=== PATIENT | female | born 1970 | race African-American/Black ===

== ENCOUNTER 2016-07-26 17:47 | Emergency (ER) | payer BC ==
[~2016-07-26] VITALS: Ht 165.1 cm; Wt 72.6 kg
[2016-07-26 17:59] VITALS: BP 130/81
[2016-07-26] MEDS ORDERED: HYDROCODONE/APAP 5/325MG TABLET. PO ONE (18:30)
--- NOTE | 2016-07-26 19:20 | PHYS DOC ---
Past Medical History Past Medical History: Sciatica Past Surgical History: , Hysterectomy, Tonsillectomy Alcohol Use: None Drug Use: None Adult General Chief Complaint Chief Complaint: UPPER EXTREMITY PAIN HPI HPI Patient is a 46 year old female who presents with atraumatic right shoulder pain for 2 weeks. reports initially she thought she slept on it wrong but symptoms have not improved. No interventions prior to arrival. Review of Systems Review of Systems Constitutional: Denies fever or chills [] Eyes: Denies change in visual acuity, redness, or eye pain [] HENT: Denies nasal congestion or sore throat [] Respiratory: Denies cough or shortness of breath [] Cardiovascular: No additional information not addressed in HPI [] GI: Denies abdominal pain, nausea, vomiting, bloody stools or diarrhea [] : Denies dysuria or hematuria [] Musculoskeletal: Right shoulder pain Integument: Denies rash or skin lesions [] Neurologic: Denies headache, focal weakness or sensory changes [] Endocrine: Denies polyuria or polydipsia [] Current Medications Current Medications Current Medications Medications (Trade) Dose Ordered Sig/Jaspreet Start Time Stop Time Status Last Admin Dose Admin Acetaminophen/ Hydrocodone Bitart (Lortab 5/325) 1 tab 1X ONCE 07/26/16 18:30 07/26/16 18:31 DC 07/26/16 18:43 1 TAB Allergies Allergies Allergies Coded Allergies Type Severity Reaction Last Updated Verified No Known Drug Allergies 07/26/16 No Physical Exam Physical Exam Constitutional: Well developed, well nourished, no acute distress, non-toxic appearance. [] HENT: Normocephalic, atraumatic, bilateral external ears normal, oropharynx moist, no oral exudates, nose normal. [] Eyes: PERRLA, EOMI, conjunctiva normal, no discharge. [] Neck: Normal range of motion, no tenderness, supple, no stridor. [] Cardiovascular:Heart rate regular rhythm, no murmur [] Lungs & Thorax: Bilateral breath sounds clear to auscultation [] Abdomen: Bowel sounds normal, soft, no tenderness, no masses, no pulsatile masses. [] Skin: Warm, dry, no erythema, no rash. [] Back: No tenderness, no CVA tenderness. [] Extremities: Tenderness entire shoulder and arm. No cellulitis, deformity, swelling, abnormal coloring, sensation, or warmth Neurologic: Alert and oriented X 3, normal motor function, normal sensory function, no focal deficits noted. [] Psychologic: Affect normal, judgement normal, mood normal. [] Current Patient Data Vital Signs Vital Signs Date Time Temp Pulse Resp B/P Pulse Ox O2 Delivery O2 Flow Rate FiO2 07/26/16 18:43 18 Room Air 07/26/16 17:59 98.4 71 98 98.4 EKG EKG [] Radiology/Procedures Radiology/Procedures [] Impressions: Right shoulder pain Course & Med Decision Making Course & Med Decision Making Pertinent Labs and Imaging studies reviewed. (See chart for details) [] Dragon Disclaimer Dragon Disclaimer This electronic medical record was generated, in whole or in part, using a voice recognition dictation system. Departure Departure Impression: Primary Impression: Right shoulder pain Disposition: 01 HOME, SELF-CARE Condition: STABLE Referrals: ALEX ESCAMILLA DO (PCP) CARLOS REEVES MD Patient Instructions: Shoulder Pain Additional Instructions: Take medication as prescribed. Wear sling until seen by ortho. Return if problems or concerns Scripts Hydrocodone/Apap 5-325 ([place] 5-325 Tablet)1 Each Tablet1 Tab PO PRN Q6HRS PRN PAIN #20 TAB Ref 0 Prov:ABIEL SPIVEY APRN 07/26/16 ABIEL SPIVEY APRN Jul 26, 2016 19:20
[2016-07-26] MEDS ORDERED: HYDR-971 PO (19:35)
--- NOTE | 2016-07-27 08:04 | RAD ---
Exam performed:3 views right shoulder Indication:Right shoulder pain for 2 weeks, no injury Date of service:07/26/16. Comparison:None available Findings :AP radiographs of the shoulder in internal and external rotation as well as a Y-view reveal the osseous structures to be intact and well aligned. The joint space is well-preserved. The articular margins are smooth. Impression: Radiographically normal shoulder.
== END 2016-07-26 19:54 | disposition home or self-care (01) ==
LOC: ER 17:47
DX: M25.511 Pain in right shoulder (principal)
CPT/HCPCS: 73030; 99284